=== PATIENT | female | born 1940 | race Caucasian/White ===

== ENCOUNTER 2022-08-29 00:04 | Outpatient (RCR) | payer MEDICARE, OTHER, SELFPAY ==
[2022-08-27] MEDS: Normal Saline Flush 10 ML SYR IVP (10:50)
[2022-08-27 11:10] LABS: Abs Immature Grans 0.09 10^3/uL (0.0-0.06); Absolute Basophil Count 0.09 10^3/uL (0.0-0.2); Absolute Eosinophil Count 0.14 10^3/uL (0.0-0.7); Absolute Monocyte Count 0.53 10^3/uL (0.1-0.8); Absolute Neutrophil Count 7.27 10^3/uL (1.2-6.7); Basophils % 0.9; Eosinophils % 1.3; HCT 35.3 % (36.0-46.0); HGB 11.3 g/dL (11.2-15.7); Immature Grans % 0.9; Lymphocytes % 22.8; MCH 27.2 pg (27.0-33.0); MCV 85 fL (80-95); MPV 8.1 fL (8.0-11.0); Neutrophils % 69.1; Platelet Count 585 10^3/uL (130-400); RBC 4.16 10^6/uL (3.93-5.22); RDW 17.6 % (11.7-14.6); RDW-SD 54.3 fL; WBC 10.52 10^3/uL (4.4-10.8)
[2022-08-27 11:25] LABS: ALT 13 U/L (14-59); AST 18 U/L (15-37); Albumin 2.8 g/dL (3.4-5.0); Alkaline Phosphatase 142 U/L (46-116); BUN 23 mg/dL (7-18); Bilirubin, Total 0.4 mg/dL (0.2-1.0); CREATININE 1.3 mg/dL (0.55-1.02); Calcium 8.8 mg/dL (8.5-10.1); Chloride 100 mmol/L (98-107); Estimated GFR 41.57 (mL/min/1.73m2); Glucose 102 mg/dL (74-106); Potassium 3.8 mmol/L (3.5-5.1); Sodium 133 mmol/L (136-145); Total Protein 6.7 g/dL (6.4-8.2)
[2022-08-27 21:48] LABS: CEA 1104.8 ng/mL (See Note)
[2022-08-29 13:54] VITALS: BP 134/84; PULSE 82; RESP 18; TEMP 36.3; O2SAT 94
[2022-08-29] MEDS: Normal Saline Flush 10 ML SYR IVP (13:54)
[2022-08-29] MEDS: Heparin 500 UNITS/5 ML SYRINGE IV (13:55)
== END 2022-09-24 23:59 | disposition home or self-care (01) ==
LOC: INF 00:04
PROVIDERS: PCP Nurse Practitioner; Visit Provider Internal Medicine Hematology & Oncology
DX: C18.9 Malignant neoplasm of colon, unspecified (principal); Z45.2 Encounter for adjustment and management of vascular access device
CPT/HCPCS: 36591; 80053; 96523; 82378; 85025